=== PATIENT | female | born 1950 | race Caucasian/White ===

== ENCOUNTER 2018-03-10 21:52 | Emergency (ER) | payer SELFPAY ==
[2018-03-10] MEDS: OXYCODONE/APAP 5MG/325MG(BULK FOR ED) 1 TABLET PO (23:17)
== END 2018-03-10 23:30 | disposition home or self-care (01) ==
LOC: M ED 21:52
DX: S82.145A Nondisplaced bicondylar fracture of left tibia, initial encounter for closed fracture (principal); W19.XXXA Unspecified fall, initial encounter; Y92.099 Unspecified place in other non-institutional residence as the place of occurrence of the external cause; Y93.9 Activity, unspecified; Y99.9 Unspecified external cause status; Z79.82 Long term (current) use of aspirin; Z79.899 Other long term (current) drug therapy; Z88.8 Allergy status to other drugs, medicaments and biological substances; Z88.1 Allergy status to other antibiotic agents; Z88.0 Allergy status to penicillin
CPT/HCPCS: 73552

== ENCOUNTER → 2018-03-11 | Outpatient (CLI) | payer SELFPAY | LOC: M RAD 12:59 | DX: S82.125A Nondisplaced fracture of lateral condyle of left tibia, initial encounter for closed fracture (principal); M25.062 Hemarthrosis, left knee; X58.XXXA Exposure to other specified factors, initial encounter; Y92.89 Other specified places as the place of occurrence of the external cause | CPT/HCPCS: 73700 ==

== ENCOUNTER 2018-03-12 11:08 | Day surgery (SDC) | payer SELFPAY ==
[2018-03-12] MEDS ORDERED: LR 1,000 ML IV ×2 (14:45→19:30)
[2018-03-12] MEDS: SCOPOLAMINE 1MG TRANSDERMAL PATCH TOP (16:10)
[2018-03-12] MEDS: CLINDAMYCIN 600 MG in APPROPRIATE DILUENT 1 EA IV (16:40)
[2018-03-12] MEDS ORDERED: ePHEDrine SULFATE 25 MG/5 ML(5MG/ML) SYRINGE As Ordered (17:12)
[2018-03-12] MEDS ORDERED: PROPOFOL 200 MG/20 ML VIAL As Ordered ×7 (17:25→18:58)
[2018-03-12] MEDS: CLINDAMYCIN 600 MG/50 ML PREMIX BAG As Ordered (17:29)
[2018-03-12] MEDS ORDERED: LIDOCAINE 2% INJ 100 MG/5 ML SDV (FOR ANES.) As Ordered (18:29)
[2018-03-12] MEDS ORDERED: fentaNYL 100 MCG/2 ML INJECTION (J3010) As Ordered (18:29)
[2018-03-12] MEDS ORDERED: MIDAZOLAM INJ 2 MG/2 ML VIAL (J2250) As Ordered (18:29)
[2018-03-12] MEDS ORDERED: fentaNYL 100 MCG/2 ML INJECTION (J3010) IV (19:30)
[2018-03-12] MEDS ORDERED: PERCOCET 5MG/325MG TAB PO (19:30)
[2018-03-12] MEDS ORDERED: HYDROMORPHONE HCL 0.5 MG/ 0.5 ML SYRINGE (J1170 PER 1) IV (19:30)
[2018-03-12] MEDS ORDERED: ONDANSETRON 4MG/2ML VIAL (J2405) IV (19:30)
[2018-03-12] MEDS: LR 1,000 ML IV (19:45)
[2018-03-12] MEDS: NORCO, ANEXSIA 5/325MG TABLET (HYDROcodone/ACETAMINOPHEN) PO (21:22)
[2018-03-13] MEDS: MORPHINE 4 MG/ML 1ML VIAL/SYRINGE (J2270) IV ×2 (00:04→04:30)
[2018-03-13] MEDS: NORCO, ANEXSIA 5/325MG TABLET (HYDROcodone/ACETAMINOPHEN) PO ×2 (12:29→15:42)
== END 2018-03-13 15:43 | disposition home or self-care (01) ==
LOC: M SDC 03-13 15:43 → M MS5PR 19:57
DX: S82.109A Unspecified fracture of upper end of unspecified tibia, initial encounter for closed fracture (principal); W19.XXXA Unspecified fall, initial encounter; Y92.89 Other specified places as the place of occurrence of the external cause; Y99.9 Unspecified external cause status; Y93.9 Activity, unspecified; I10 Essential (primary) hypertension; E78.4 Other hyperlipidemia; M79.7 Fibromyalgia; F41.9 Anxiety disorder, unspecified; Z79.899 Other long term (current) drug therapy
CPT/HCPCS: 27535

== ENCOUNTER → 2021-09-18 | Outpatient (CLI) | payer OTHER ==
[~2021-09-18] MED LIST: ASPI-1 PO; NORC1TAB7 PO; PAXI40TA10 PO; PERC5TAB12 PO
== END ==
LOC: M EKG 11:46
PROVIDERS: ATTEND Physician Assistant Surgical
DX: Z01.810 Encounter for preprocedural cardiovascular examination (principal)